=== PATIENT | female | born 1975 | race African-American/Black ===

== ENCOUNTER 2017-12-07 09:14 | Emergency (ER) | payer OTHER ==
[~2017-12-07] VITALS: Ht 154.9 cm; Wt 83.0 kg
[2017-12-07] MEDS ORDERED: TOBRADEX EYE DRO5 ML OPHTHALMIC (10:59)
[2017-12-07] MEDS ORDERED: AUGMENTIN 875-1 EACH PO (10:59)
[2017-12-07] MEDS ORDERED: LANTUS100 UNIT/M SUBQ (11:02)
[2017-12-07] MEDS ORDERED: NOVOLOG100 UNIT/1 SUBQ (11:02)
[2017-12-07] MEDS ORDERED: METFORMIN HCL500 MG PO (11:02)
[2017-12-07 11:23] VITALS: BP 154/97
== END 2017-12-07 11:27 | disposition home or self-care (01) ==
LOC: ER 09:14
DX: H04.302 Unspecified dacryocystitis of left lacrimal passage (principal); S05.02XA Injury of conjunctiva and corneal abrasion without foreign body, left eye, initial encounter; H05.012 Cellulitis of left orbit; Z76.0 Encounter for issue of repeat prescription; F17.210 Nicotine dependence, cigarettes, uncomplicated; E11.9 Type 2 diabetes mellitus without complications; Z88.5 Allergy status to narcotic agent; X58.XXXA Exposure to other specified factors, initial encounter; Y92.89 Other specified places as the place of occurrence of the external cause; Y93.89 Activity, other specified; Y99.8 Other external cause status

== ENCOUNTER 2020-10-29 15:38 | Emergency (ER) | payer OTHER ==
[~2020-10-29] VITALS: Ht 154.9 cm; Wt 84.8 kg
[~2020-10-29 15:38] MED LIST: AUGMENTIN 875-1 EACH PO; LANTUS100 UNIT/M SUBQ; METFORMIN HCL500 MG PO; NOVOLOG100 UNIT/1 SUBQ; TOBRADEX EYE DRO5 ML OPHTHALMIC
[2020-10-29 16:48] LABS: ABSOLUTE NEUTROPHILS 8.5 thou/uL (1.4-8.2); BASOPHILS 0.8 % (0.0-2.0); EOSINOPHILS 2.5 % (0.0-3.0); HEMATOCRIT 43.6 % (37.0-47.0); HEMOGLOBIN 14.3 gm/dL (12.0-15.0); LYMPHOCYTES 33.3 % (24.0-44.0); MCH 27.3 pg (26.0-34.0); MCHC 32.8 g/dL (28.0-37.0); MCV 83.2 fL (80.0-100.0); MONOCYTES 7.6 % (1.0-8.0); POLYS 55.8 % (36.0-66.0); RBC 5.24 mil/uL (4.20-5.00); RDW 13.9 % (10.5-14.5); WBC 16.4 thou/uL (4.0-11.0)
[2020-10-29 16:56] LABS: ANION GAP 12 mmol/L (7-16); BUN 19 mg/dL (7-18); CALCIUM 9.8 mg/dL (8.5-10.1); CHLORIDE 96 mmol/L (98-107); CO2 27 mmol/L (21-32); GLUCOSE 188 mg/dL (74-106); POTASSIUM 4.5 mmol/L (3.5-5.1); SODIUM 135 mmol/L (136-145)
[2020-10-29 17:06] LABS: ALBUMIN 3.5 g/dL (3.4-5.0); SGOT 20 U/L (15-37); SGPT 19 U/L (14-59); TOTAL BILIRUBIN 0.5 mg/dL (0.2-1.0); TOTAL PROTEIN 8.2 g/dL (6.4-8.2); TROPONIN-I <0.06 ng/mL (<0.06)
[2020-10-29 17:15] LABS: PLATELET COUNT 345 thou/uL (150-400)
--- NOTE | 2020-10-29 17:40 | EKG ---
[address] [place] [address] ELECTROCARDIOGRAM REPORT Name: SRINIVASA ABARCA Room #: REG GEOVANNI Bautista#: [id number] Admission: 10/29/20 Attend Phys: Discharge: Date of : 77 Report #: [id number] [facility] ED Test Date: 2020-10-29 Test Time: 17:18:08 Pat Name: SRINIVASA ABARCA Department: Room: Gender: F Library Technician: MARCOS : 1975 Requested By: Ben Taylor Order Number: [id number] MD: Gilberto Ambriz Measurements Intervals [place] Rate: 82 P: 62 [place]: 143 QRS: -41 QRSD: 89 T: 88 QT: 383 QTc: 448 Interpretive Statements Sinus rhythm Left anterior fascicular block Anteroseptal infarct, old No previous ECG available for comparison Electronically Signed On 10-29-2020 17:40:02 CDT by Gilberto Ambriz [email or web address] <ELECTRONICALLY SIGNED> By: Gilberto Ambriz MD, [facility] 10/29/20 1740 1718 1718 Gilberto Ambriz MD, FAC /EPI
[2020-10-29] MEDS ORDERED: MEDROLDOSEPACK PO (18:29)
[2020-10-29] MEDS ORDERED: PROAIR HFA8.5 GM INH (18:29)
[2020-10-29 18:30] VITALS: BP 159/92
--- NOTE | 2020-10-30 13:03 | EKG ---
[place] [address] [address] [facility] [place] [address] ELECTROCARDIOGRAM REPORT Name: ABARCASRINIVASA Room #: DEP Lily#: [id number] Admission: 10/29/20 Attend Phys: Discharge: 10/29/20 Date of : 77 Report #: [id number] [facility] ED Test Date: 2020-10-29 Test Time: 15:49:52 Pat Name: SRINIVASA ABARCA Department: Room: Gender: F Software Trainer: MARISA : 1975 Requested By: Ben Taylor Order Number: [id number] MD: Diallo Hollingsworth Measurements Intervals [place] Rate: 100 P: 62 PA: 141 QRS: -47 QRSD: 89 T: 88 QT: 360 QTc: 465 Interpretive Statements Sinus tachycardia Probable left atrial enlargement Left anterior fascicular block Abnormal R-wave progression, early transition Probable left ventricular hypertrophy Anterior Q waves, possibly due to LVH Baseline wander in lead(s) I,III,aVL,aVF,V2,V3,V4,V5,V6 No previous ECG available for comparison Electronically Signed On 10-30-2020 13:03:40 CDT by Diallo Hollingsworth [email or web address] <ELECTRONICALLY SIGNED> By: Diallo Hollingsworth MD 10/30/20 1303 1549 1549 Diallo Hollingsworth MD /EPI
== END 2020-10-29 18:47 | disposition home or self-care (01) ==
LOC: ER 15:38
PROVIDERS: Emergency Medicine
DX: J40 Bronchitis, not specified as acute or chronic (principal); Z20.822 Contact with and (suspected) exposure to COVID-19; E11.9 Type 2 diabetes mellitus without complications; I10 Essential (primary) hypertension; M19.90 Unspecified osteoarthritis, unspecified site; F17.210 Nicotine dependence, cigarettes, uncomplicated; Z90.710 Acquired absence of both cervix and uterus; Z88.5 Allergy status to narcotic agent; Z90.49 Acquired absence of other specified parts of digestive tract